=== PATIENT | male | born 1955 | race Hispanic/Latino ===

== ENCOUNTER → 2020-10-15 | Outpatient (CLI) | payer OTHER ==
[~2020-10-15] VITALS: Ht 177.8 cm; Wt 136.2 kg
[~2020-10-15] MED LIST: AMLO-257 PO; ASCO100031 PO; ASPI-1005 PO; AZEL205. NS; BUDE10.2 IH; CEFAZOLIN SODIUM 1 GM VIAL IVP SCH; DOXA8TAB81 PO; FINA5TAB41 PO; FISH1CAP63 PO; IPRA4AER IH; ISOS30TA6 PO; LEVO5TAB13 PO; METO25TA6 PO; MONT10TA96 PO; MULT-1258 PO; OXYB10TA30 PO; PRAV80TA21 PO; VALS320T16 PO; fluticasone NASAL
[2020-10-15 12:01] LABS: BASOPHILS % (AUTO) 0.8 % (0.0-5.0); EOSINOPHILS % (AUTO) 3.1 % (0.0-8.0); HEMATOCRIT 43.5 % (42-54); LYMPHOCYTES % (AUTO) 20.3 % (21.0-51.0); MEAN CORPUSCULAR HEMOGLOBIN 29.8 pg (27.0-33.0); MEAN CORPUSCULAR HGB CONC 32.6 g/dL (32.0-36.0); MEAN CORPUSCULAR VOLUME 91.4 fL (79-99); MONOCYTES % (AUTO) 8.6 % (3.0-13.0); NEUTROPHILS % (AUTO) 66.9 % (40.0-77.0); PLATELET COUNT (AUTO) 124 K/uL (130-400); RED BLOOD CELL COUNT(AUTO) 4.76 MIL/uL (4.50-6.20); WHITE BLOOD COUNT (AUTO) 7.1 K/uL (4.8-10.8)
[2020-10-15 12:11] LABS: INR 1.26 (0.85-1.15); PROTHROMBIN TIME 13.2 SEC (9.6-11.6)
[2020-10-15 12:12] LABS: ALBUMIN 3.3 g/dL (3.5-5.0); BILIRUBIN,TOTAL 0.9 mg/dL (0.2-1.0); CREATININE 0.7 mg/dL (0.5-1.5); PARTIAL THROMBOPLASTIN TIME 28.8 SEC (26.3-35.5); POTASSIUM 3.1 mmol/L (3.5-5.1)
[2020-10-17 13:07] VITALS: BP 162/77
== END ==
LOC: DAH 10:00 → EDSTATUS 10:00
PROVIDERS: ATTEND Student in an Organized Health Care Education/Training Program
DX: Z01.818 Encounter for other preprocedural examination (principal); L72.3 Sebaceous cyst; I48.91 Unspecified atrial fibrillation; Z20.828 Contact with and (suspected) exposure to other viral communicable diseases
CPT/HCPCS: 36415; 80053; 85025; 85610; 85730; 93005; A6260; C9803; U0003

== ENCOUNTER 2020-12-20 20:09 | Emergency (ER) | payer OTHER ==
[~2020-12-20 20:09] MED LIST changes: -CEFAZOLIN SODIUM 1 GM VIAL IVP SCH; -ISOS30TA6 PO; +ISOS30TA92 PO; +MONT-39 PO; -MONT10TA96 PO
[2020-12-20 20:53] LABS: APPEARANCE,URINE CLOUDY (CLEAR); BILIRUBIN,URINE NEGATIVE (NEGATIVE); COLOR,URINE YELLOW (YELLOW); GLUCOSE, URINE (UA) NEGATIVE (NEGATIVE); KETONES,URINE NEGATIVE (NEGATIVE); LEUKOCYTE ESTERASE ,URINE MODERATE (NEGATIVE); NITRATE,URINE NEGATIVE (NEGATIVE); OCCULT BLOOD,URINE MODERATE (NEGATIVE); PH,URINE 8.5 (5.0-8.0); PROTEIN,URINE 30 mg/dL (NEGATIVE); UROBILINOGEN,URINE 0.2 mg/dL (0.2-1.0)
[2020-12-20] MEDS ORDERED: 0.9%NACL 1000ML 1,000 ML IV ONE (21:09)
[2020-12-20 21:10] LABS: AMORPHOUS SEDIMENT,UR Few /LPF (None Seen); BACTERIA,URINE Few /HPF (None Seen); RBC,URINE 0-1 /HPF (0-1); SQUAMOUS EPITHELIAL CELL,UR Rare /HPF (0-2); TRIPLE PHOSPHATE CRYSTAL,UR Few /LPF (None Seen); WBC,URINE 0-1 /HPF (0-1)
[2020-12-20 21:11] LABS: MUCUS,URINE Rare LPF (None Seen)
[2020-12-20 21:26] LABS: BASOPHILS % (AUTO) 0.7 % (0.0-5.0); EOSINOPHILS % (AUTO) 2.4 % (0.0-8.0); HEMATOCRIT 43.4 % (42-54); LYMPHOCYTES % (AUTO) 11.8 % (21.0-51.0); MEAN CORPUSCULAR HEMOGLOBIN 29.7 pg (27.0-33.0); MEAN CORPUSCULAR HGB CONC 32.5 g/dL (32.0-36.0); MEAN CORPUSCULAR VOLUME 91.4 fL (79-99); MONOCYTES % (AUTO) 8.5 % (3.0-13.0); NEUTROPHILS % (AUTO) 76.3 % (40.0-77.0); PLATELET COUNT (AUTO) 138 K/uL (130-400); RED BLOOD CELL COUNT(AUTO) 4.75 MIL/uL (4.50-6.20); RED CELL DISTRIBUTION WIDTH 13.7 % (11.0-15.5); WHITE BLOOD COUNT (AUTO) 11.2 K/uL (4.8-10.8)
[2020-12-20 21:39] LABS: INR 1.23 (0.85-1.15); PROTHROMBIN TIME 13.2 SEC (9.6-11.6)
[2020-12-20] MEDS ORDERED: LEVOFLOXACIN 750 MG/D5W 150 ML 150 ML ONE (21:46)
[2020-12-20 22:33] LABS: CREATININE 1.1 mg/dL (0.5-1.5); POTASSIUM 3.6 mmol/L (3.5-5.1)
[2020-12-20 22:38] LABS: ALBUMIN 3.6 g/dL (3.5-5.0); BILIRUBIN,TOTAL 0.7 mg/dL (0.2-1.0); TOTAL PROTEIN, SERUM 7.4 g/dL (6.0-8.3)
== END 2020-12-20 23:38 | disposition home or self-care (01) ==
LOC: EDH 20:09
DX: N39.0 Urinary tract infection, site not specified (principal); J45.909 Unspecified asthma, uncomplicated; I10 Essential (primary) hypertension; E78.5 Hyperlipidemia, unspecified; E78.00 Pure hypercholesterolemia, unspecified; E86.0 Dehydration; Z87.891 Personal history of nicotine dependence; Z85.46 Personal history of malignant neoplasm of prostate
CPT/HCPCS: 36415; 80053; 81001; 83605; 85025; 85610; 85730; 87077; 87088; 87186; 96361; 96365; 99284; J1956; J7030

== ENCOUNTER → 2021-02-20 | Outpatient (CLI) | payer OTHER ==
[~2021-02-20] MED LIST changes: -MONT-39 PO; +MONT10TA32 PO
== END | disposition home or self-care (01) ==
LOC: SHCH 11:14
PROVIDERS: ATTEND Internal Medicine Cardiovascular Disease
DX: I48.0 Paroxysmal atrial fibrillation (principal)
CPT/HCPCS: 93306; 93356

== ENCOUNTER → 2022-11-23 | Outpatient (CLI) | payer OTHER ==
[~2022-11-23] MED LIST changes: +MONT-39 PO; -MONT10TA32 PO
== END | disposition home or self-care (01) ==
LOC: SHCH 14:01
PROVIDERS: ATTEND Internal Medicine Cardiovascular Disease
DX: I87.2 Venous insufficiency (chronic) (peripheral) (principal)
CPT/HCPCS: 93970

== ENCOUNTER → 2022-12-02 | Outpatient (CLI) | payer OTHER ==
[2022-12-02 16:38] LABS: POTASSIUM 3.1 mmol/L (3.5-5.1)
== END | disposition home or self-care (01) ==
LOC: LAB 10:42
PROVIDERS: ATTEND Internal Medicine Cardiovascular Disease
DX: I10 Essential (primary) hypertension (principal)
CPT/HCPCS: 36415; 80048

== ENCOUNTER → 2022-12-20 | Outpatient (CLI) | payer OTHER ==
[2022-12-20 13:06] LABS: CREATININE 1.1 mg/dL (0.5-1.5)
== END | disposition home or self-care (01) ==
LOC: LAB 08:32
PROVIDERS: ATTEND Internal Medicine Cardiovascular Disease
DX: I10 Essential (primary) hypertension (principal)
CPT/HCPCS: 36415; 80048

== ENCOUNTER → 2022-12-23 | Outpatient (CLI) | payer OTHER | END | disposition home or self-care (01) | LOC: RAH 09:29 | PROVIDERS: ATTEND Internal Medicine Cardiovascular Disease | DX: I10 Essential (primary) hypertension (principal) | CPT/HCPCS: 76770; 93975 ==

== ENCOUNTER → 2022-12-27 | Outpatient (CLI) | payer OTHER ==
[2022-12-27 13:36] LABS: CREATININE 1.1 mg/dL (0.5-1.5); POTASSIUM 3.7 mmol/L (3.5-5.1)
== END | disposition home or self-care (01) ==
LOC: LAB 10:06
PROVIDERS: ATTEND Internal Medicine Cardiovascular Disease
DX: I10 Essential (primary) hypertension (principal)
CPT/HCPCS: 36415; 80048

== ENCOUNTER → 2023-01-03 | Outpatient (CLI) | payer OTHER ==
[2023-01-03 16:29] LABS: CREATININE 1.1 mg/dL (0.5-1.5); POTASSIUM 3.6 mmol/L (3.5-5.1)
== END | disposition home or self-care (01) ==
LOC: LAB 09:32
PROVIDERS: ATTEND Internal Medicine Cardiovascular Disease
DX: I10 Essential (primary) hypertension (principal)
CPT/HCPCS: 36415; 80048

== ENCOUNTER → 2025-06-25 | Outpatient (CLI) | payer OTHER ==
[~2025-06-25] MED LIST changes: -ASCO100031 PO; +ASCO10004 PO; -AZEL205. NS; +AZEL205.2 NS; -PRAV80TA21 PO; +PRAV80TA75 PO
--- NOTE | 2025-06-25 15:44 | HMCSR ---
APPROVED REPORT EXAM: Two-dimensional and M-mode echocardiogram with Doppler and color Doppler. INDICATION ICD: Localized edema R60.0 Dyspnea 2D Dimensions RVDd5.5 cmLVEF(%)58.4 (>50%)LVED Vol(simp.)144.8 mL IVSd1.1 (0.7-1.1cm)FS(%)31 %LVES Vol(simp.)63.7 mL LVDd5.7 (3.8-5.6cm)LA (2D)4.5 (1.6-4.0cm)LVEF(%, simp.)56 % PWd1.0 (0.7-1.1cm)Ao Root(2D)2.9 (2.0-3.7cm)LA ESV INDEX (BP)51.02 mL/m2 LVDs3.9 (2.5-4.0cm)LVOT diam2.3 (1.8-2.4cm) IVC diam2.1 cm M-Mode Dimensions EPSS0.9 cm LA (MM)5.3 (1.6-4.0cm) Ao Root(MM)3.1 (2.0-3.7cm) Aortic Valve AoV Vmax1.5 m/[place] Peak GR8.4 mmHgLVOT Vmax1.0 m/s AoV VTI0.3 mAo Mean GR3.9 mmHgLVOT VTI0.18 m ADDY (VMAX)2.88 cm2AVA (VTI) 2.4 cm2 Mitral Valve MV E Qtpb368.9 cm/sDECEL Tbff015 ms MV A Vmax30.3 cm/sP 1/2 T60 ms E/A ratio3.3MVA (PHT)3.7 cm2 TDI E/E' Medial9.6E/E' Lateral8.4 Medial E' Peak V10.51 cm/sLateral E' Peak V12.05 cm/s Pulmonary Valve PV Vmax1.2 m/sPV VTI0.25 mPV Mean GR2.3 mmHg PV Peak GR5.4 mmHg Tricuspid Valve TR Vmax2.4 m/sRVSP22.1 mmHg TR Peak GR22.1 mmHg Left Ventricle The left ventricle is normal size. There is normal left ventricular wall thickness. The LVEF is 55-60 %. The left ventricular diastolic function is normal. Right Ventricle The right ventricle is dilated. The right ventricular systolic function is normal. Atria The left atrium is severely dilated. The right atrium is severely dilated. Aortic Valve The aortic valve is normal in structure. No aortic regurgitation is present. There is no aortic valvu lar stenosis. Mitral Valve The mitral valve is normal in structure. Mitral regurgitation is trace. There is no mitral valve sten osis. Tricuspid Valve The tricuspid valve is normal in structure. There is no tricuspid valve regurgitation noted. Pulmonic Valve The pulmonary valve is normal in structure. There is no pulmonic valvular regurgitation. Great Vessels The aortic root is normal in size. The IVC is normal in size and collapses >50% with inspiration. Pericardium There is no pericardial effusion. Conclusion The left ventricle is normal size. The LVEF is 55-60%. The left ventricular diastolic function is normal. The right ventricle is dilated. The right ventricular systolic function is normal. The left atrium is severely dilated. The right atrium is severely dilated. No valuvlar pathology. There is no pericardial effusion.
--- NOTE | 2025-06-26 07:38 | HMCIMG ---
EXAMINATION: DUPLEX ULTRASOUND EXAMINATION OF THE BILATERAL LOWER EXTREMITY ARTERIES. CLINICAL HISTORY: PVD. COMPARISON: None. FINDINGS: Peak systolic velocities within the right lower arteries are as follows: Common femoral artery: 223 cm/s. Superficial femoral artery: 151 cm/s at proximal, 108 cm/s at mid, and 157 cm/s at distal segments. Popliteal artery: 87 cm/s at proximal and 117 cm/s at distal segments. Posterior tibial artery: 119 cm/s. Anterior tibial artery: 90 cm/s. Dorsalis pedis artery: 76 cm/s. The right lower limb arteries demonstrate triphasic waveforms in all arteries. Peak systolic velocities within the left lower arteries are as follows: Common femoral artery: 246 cm/s. Superficial femoral artery: 176 cm/s at proximal, 130 cm/s at mid, and 130 cm/s at distal segments. Popliteal artery: 184 cm/s at proximal and 112 cm/s at distal segments. Posterior tibial artery: 124 cm/s. Anterior tibial artery: 106 cm/s. Dorsalis pedis artery: 118 cm/s. The left lower limb arteries demonstrate triphasic waveforms in all arteries. There is intimal wall thickening in both the lower limb arteries. There is increased velocities in the bilateral common femoral arteries with 50% to 80% diameter stenosis. There is a cyst that measures 5.2 x 0.5 x 1.5 cm in the left popliteal fossa. Incidentally, there is nonocclusive deep vein thrombosis in the left popliteal vein. IMPRESSION: Mild intimal wall thickening in both the lower limb arteries. Both lower limb arteries demonstrate triphasic waveforms. No flow limiting lesions. Increased velocities in the bilateral common femoral arteries with 50% to 80% diameter stenosis. Tucker???s cyst in the left popliteal fossa. Incidentally noted, nonocclusive deep vein thrombosis in the left popliteal vein. Recommend duplex venous ultrasound. /[place]
== END | disposition home or self-care (01) ==
LOC: RAH 13:30
PROVIDERS: ATTEND Family Medicine
DX: M71.22 Synovial cyst of popliteal space [Baker], left knee (principal); I82.432 Acute embolism and thrombosis of left popliteal vein; I83.90 Asymptomatic varicose veins of unspecified lower extremity; I73.9 Peripheral vascular disease, unspecified; R06.09 Other forms of dyspnea; R60.0 Localized edema
CPT/HCPCS: 93306; 93925

== ENCOUNTER → 2025-07-04 | Outpatient (CLI) | payer OTHER ==
[~2025-07-04] MED LIST changes: +IOHEXOL-350 75 ML VIAL IV ONE
--- NOTE | 2025-07-04 16:46 | HMCIMG ---
EXAM: CTA Chest with and without Intravenous Contrast for PE evaluation CLINICAL HISTORY: Acute embolism and thrombosis of unspecified deep veins of left lower extre TECHNIQUE: Axial CTA images of the chest with and without intravenous contrast using a pulmonary embolism protocol. Multiplanar reconstructed images were created and reviewed. CONTRAST: None. was administered without incident. COMPARISON: None provided. FINDINGS: PULMONARY ARTERIES: The pulmonary artery appears dilated, measuring approximately 3.6 cm. Pulmonary artery-aorta ratio is >1. No evidence of central or segmental pulmonary embolism is seen. AORTA: Atherosclerotic changes are seen in the form of vessel wall calcification of arch of the aorta. There is no evidence for aneurysm or dissection of the thoracic aorta. LUNGS: No pulmonary infiltrates. Bibasilar atelectasis. PLEURAL SPACES: No evidence of pneumothorax. No pleural effusions. HEART: Mild cardiomegaly. No significant pericardial effusion. LYMPH NODES: No lymphadenopathy is evident. BONES: Spine degenerative changes are seen. No focal osseous abnormality or acute fracture. UPPER ABDOMEN: Images of the upper abdomen are unremarkable. IMPRESSION: 1. No evidence of pulmonary embolism. Dilated pulmonary artery (3.6 cm) with pulmonary artery-aorta ratio >1, suggestive of pulmonary hypertension. 2. No thoracic aortic aneurysm or dissection. Atherosclerosis. 3. Mild cardiomegaly. 4. No pulmonary infiltrates or pleural effusions. Bibasilar atelectasis. /[place]
== END | disposition home or self-care (01) ==
LOC: RAH 09:40
PROVIDERS: ATTEND Family Medicine
DX: I82.402 Acute embolism and thrombosis of unspecified deep veins of left lower extremity (principal); J98.11 Atelectasis; I70.0 Atherosclerosis of aorta; I51.7 Cardiomegaly; M47.814 Spondylosis without myelopathy or radiculopathy, thoracic region
CPT/HCPCS: 71270; Q9967

== ENCOUNTER → 2025-07-10 | Outpatient (CLI) | payer OTHER ==
[~2025-07-10] MED LIST changes: -IOHEXOL-350 75 ML VIAL IV ONE
--- NOTE | 2025-07-11 07:03 | HMCIMG ---
EXAMINATION: SPECTRAL DOPPLER ULTRASOUND EXAMINATION OF THE BILATERAL LOWER EXTREMITY VEINS. CLINICAL HISTORY: Swelling. COMPARISON: Bilateral lower extremity venous doppler dated 11/23/2022. TECHNIQUE: Real-time ultrasound scan of the veins of the bilateral lower extremity with color Doppler flow, spectral waveform analysis and compression. FINDINGS: DEEP VEINS: The common femoral, superficial femoral, and popliteal veins are echolucent and compressible. There is normal color Doppler flow throughout. The visualized calf veins appear patent. SUPERFICIAL VEINS: The greater saphenous veins are patent and compressible. There is partial thrombosis in the left short saphenous vein. SOFT TISSUES: No popliteal fossa cyst or other abnormalities. IMPRESSION: No deep venous thrombosis evident in the bilateral lower extremity. Nonocclusive superficial thrombosis in the left short saphenous vein. /[place]
== END | disposition home or self-care (01) ==
LOC: RAH 13:34
PROVIDERS: ATTEND Family Medicine
DX: I82.812 Embolism and thrombosis of superficial veins of left lower extremity (principal); R60.0 Localized edema; I83.90 Asymptomatic varicose veins of unspecified lower extremity; I73.9 Peripheral vascular disease, unspecified
CPT/HCPCS: 93970